=== PATIENT | female | born 1990 ===

== ENCOUNTER 2017-09-02 22:24 | Emergency (ER) | payer BC, MEDICAID ==
[2017-01-11 04:20] VITALS: Wt 61.2 kg
[~2017-09-02 22:24] MED LIST: DOCU-416 PO; FERR-41 PO; IBUP800T37 PO; LOR5/325 PO; PREN-127 PO
--- NOTE | 2017-09-02 22:27 | ER Report ---
History and Physical Time Seen By MD: 22:26 HPI/ROS CHIEF COMPLAINT: Left lower toothache HISTORY OF PRESENT ILLNESS: 26-year-old female , 9 months and still breast-feeding. Patient's been suffering with a toothache in the left lower jaw for 3 weeks. She's had no difficulty swallowing or breathing. She's had no fever. REVIEW OF SYSTEMS: Respiratory: No cough, no dyspnea. Cardiovascular: No chest pain, no palpitations. Gastrointestinal: No vomiting, no abdominal pain. Musculoskeletal: No back pain. Allergies: Coded Allergies: Penicillins (Verified Allergy, Intermediate, RASH, 09/02/17) Rash and "loss of motor skills" Home Meds Active Scripts Oxycodone Hcl/Acetaminophen (PERCOCET 5-325 MG TABLET) 1 Each Tablet, 1 EACH PO Q4-6H Y for PAIN, #12 Prov:DIAKEVEN Corky DO 09/02/17 Azithromycin (ZITHROMAX) 250 Mg Tablet, 1 TAB PO QDAY for infection, #7 TAB Prov:KEVEN ALVARES Corky DO 09/02/17 Discontinued Reported Medications Vits W-Ca,Fe,Fa(<1MG) ( VITAMINS) 1 Each Tablet, 1 EACH PO DAILY, TAB 01/11/17 Discontinued Scripts Docusate Sodium (COLACE) 100 Mg Capsule, 100 MG PO BID, #60 CAPSULE 1 Refill Prov:TJ RAJAN MD 01/13/17 Ferrous Sulfate (FERROUS SULFATE) 325 Mg Tablet.dr, 1 TAB PO BID, #60 TAB 1 Refill Prov:TJ RAJAN MD 01/13/17 Ibuprofen (IBUPROFEN) 800 Mg Tablet, 800 MG PO Q8H, #30 TAB 0 Refills Prov:TINY ROCHA DO 01/12/17 Hydrocodone Bit/Acetaminophen (HYDROCODON-ACETAMINOPHEN 5-325) 1 Each Tablet, 1- 2 EACH PO Q4H Y for PAIN, #20 TAB 0 Refills Prov:TINY ROCHA DO 01/12/17 Reviewed Nurses Notes: Yes Old Medical Records Reviewed: Yes Hx Smoking: No Smoking Status: Never Smoker Exposure to Second Hand Smoke?: No Constitutional Vital Sign - Last 24 Hours 09/02/17 22:29 Temp 97.5 Pulse 81 Resp 14 B/P (MAP) 124/89 Pulse Ox 94 O2 Delivery Room Air Physical Exam General Appearance: The patient is alert, has no immediate need for airway protection and no current signs of toxicity. Vital signs stable, afebrile, pulse ox normal HEENT: Pupils equal and round no injection. TMs normal, examination of the oropharynx reveals 2 teeth with advanced caries, eroded to the gumline in position #18 and 19, Respiratory: Chest is non tender, lungs are clear to auscultation. Cardiac: regular rate and rhythm Gastrointestinal: Abdomen is soft and non tender, no masses, bowel sounds normal. Musculoskeletal: Neck: Neck is supple and non tender. Extremities have full range of motion and are non tender. Skin: No rashes or lesions. DIFFERENTIAL DIAGNOSIS: After history and physical exam differential diagnosis was considered for tooth abscess, dental caries, dental pain, osteomyelitis of the jaw, lymphadenopathy Medical Decision Making ED Course/Re-evaluation ED Course Patient was admitted to an examination room. H&P was done. The differential diagnosis was considered. On clinical examination. Patient has several teeth with a large dental caries in her left lower jaw. Patient's been having pain for several weeks. The pain is become worse over the last 24 hours. Patient be covered with Zithromax. Since she is breast-feeding. Clindamycin is controversial and breast-feeding. Patient has a penicillin allergy. Patient was given a limited supply of Percocet for temporary pain relief. She is advised to take ibuprofen 600 mg 3 times daily. Patient advised to follow-up with the dentist as soon as possible. Decision to Disposition Date: Sep 02, 2017 Decision to Disposition Time: 22:44 Depart Departure Latest Vital Signs Vital Signs Date Time Temp Pulse Resp B/P (MAP) Pulse Ox O2 Delivery O2 Flow Rate FiO2 09/02/17 22:29 97.5 81 14 124/89 94 Room Air Impression: Primary Impression: Toothache Additional Impression: Normal breast feeding Condition: Improved Disposition: HOME OR SELF-CARE New Scripts Oxycodone Hcl/Acetaminophen (PERCOCET 5-325 MG TABLET) 1 Each Tablet 1 EACH PO Q4-6H Y for PAIN, #12 Prov: KEVEN ALVARES DO 09/02/17 Azithromycin (ZITHROMAX) 250 Mg Tablet 1 TAB PO QDAY for infection, #7 TAB Prov: KEVEN ALVARES DO 09/02/17 Patient Instructions: Toothache (ED) Additional Instructions: Take ibuprofen 200 mg 3 tablets 3 times a day with food Apply warm compresses to your jaw Take Zithromax as prescribed Follow-up with a dentist as soon as possible Problem Qualifiers KEVEN ALVARES DO Sep 02, 2017 22:27
[2017-09-02 22:29] VITALS: BP 124/89
[2017-09-02] MEDS ORDERED: oxyCODONE/ACETAMIN 5/325MG TH 2 TAB/BOTTLE PO ONE (22:45)
[2017-09-02] MEDS ORDERED: AZITHROMYCIN 250 MG TAB PO ONE (22:45)
[2017-09-02] MEDS ORDERED: OXYC-865 PO (22:51)
[2017-09-02] MEDS ORDERED: AZIT-1 PO (22:51)
== END 2017-09-02 23:00 | disposition home or self-care (01) ==
LOC: ER 22:32
DX: K08.89 Other specified disorders of teeth and supporting structures (principal)
CPT/HCPCS: 99282; Q0144